=== PATIENT | male | born 1965 | race African-American/Black ===

== ENCOUNTER 2024-10-17 10:42 | Outpatient (CLI) | payer OTHER, SELFPAY ==
--- NOTE | ~2024-10-17 | XR_ITS ---
Cervical Spine: AP, lateral, open-mouth views Clinical History: Arthrodesis status Findings: There is anterior fusion from C5 to C7. There is moderate to advanced degenerative disc duglas rowing at C3-C4 and C4 on C5. There are extensive anterior bridging osteophyte is compatible with DIS H of the upper cervical spine. There is mild facet arthropathy. No instability seen on flexion or ext ension. Pre-vertebral soft tissues are unremarkable. Impression: Anterior fusion from C5 to C7. Moderate degenerative spondylosis and DISH, as above. Reviewed, dictated and finalized at location M. Impression: Anterior fusion from C5 to C7. Moderate degenerative spondylosis and DISH, as above.
--- OUTSIDE RECORDS SUMMARY | 2024-10-17 12:18 | XMS_ITS ---
Author Organization [facility] Address [address] [facility] [address] [facility] [address] [place] [address] Care Team Providers Care Pathology Laboratory Technologist Name Role Phone Sacha Yasmany Unavailable [phone] PROBLEMS Problem Type ICD Code Onset Dates Problem Status W/U Status Risk SNOMED Code Notes Problem Chronic kidney disease, stage 2 (mild) (N18.2) Active confirmed Chronic kidne y disease stage 2 (584989589) Problem Essential (primary) hypertension (I10) Active confirmed Essential hypertension (13201103) Problem Other proteinuria (R80.8) Active confirmed Proteinuria (30277842) Problem Obesity, unspecified (E66.9) Active confirmed Obesity (175396617) Problem Hyperlipidemia, unspecified (E78.5) Active confirmed Hyperlipidemia (99488022) Problem Renal osteodystrophy (N25.0) Active confirmed Renal osteodystrophy (87817164) Encounters Encounter Location Date Provider Diagnosis [facility] [address] [facility] [address] [place] [address] 07/29/2023 Yasmany Goncalves Chronic kidney disea se, stage 2 (mild) N18.2 ; Essential (primary) hypertension I10 ; Other proteinuria R80.8 ; Obesity, unspecified E66.9 ; Hyperlipidemia, unspecified E78.5 and Renal osteodystrophy N25.0 ASSESSMENTS Encounter Date Diagnosis Assessment Notes Treatment Notes Treatment Clinical Notes Section Notes 07/29/2023 Chronic kidney disease, stage 2 (mild) (ICD-10 - N18.2) 07/29/2023 Essential (primary) hypertension (ICD-10 - I10) 07/29/2023 Other proteinuria (ICD-10 - R80.8) 07/29/2023 Obesity, unspecified (ICD-10 - E66.9) 07/29/2023 Hyperlipidemia, unspecified (ICD-10 - E78.5) 07/29/2023 Renal osteodystrophy (ICD-10 - N25.0) PLAN OF TREATMENT No Information Progress Notes * Joan CUNNINGHAMhDOB: 6 (58 yo M)Acc No.[id number]:07/29/2023 Progress Notes Patient: Abraham CUNNINGHAM Provider: MD WANDER, Annie.P, F.A.S.N. :1965 Age:57 Y Sex:Male Date:07/29/2023 [facility] [place] [id number] Subjective: * Chief Complaints: * * Medical History: Objective: Assessment: * Assessment: 1. Chronic kidney disease, stage 2 (mild) - N18.2 2. Essential (primary) hypertension - I10 3. Other proteinuria - R80.8 4. Obesity, unspecified - E66.9 5. Hyperlipidemia, unspecified - E78.5 6. Renal osteodystrophy - N25.0 Plan: * Treatment: * Billing Information: * Visit Code: 96876 Office Visit, New Pt., Level 5. * Procedure Codes: * Sign off status: Pending * Provider: MD WANDER, Aniceto.Abi.Sandrine.P, F.A.S.N. Date: 07/29/2023
--- OUTSIDE RECORDS SUMMARY | 2024-10-17 12:18 | XMS_ITS | Referral Summary ---
Author Organization [facility] Address [address] [place] [address] Care Team Providers Care Color Buffer Name Role Phone Unavailable Primary Care Provider Unavailabl e Social History Tobacco Use Types Packs/Day Years Used Date Smoking Tobacco: Never Assessed Sex and Gender Information Value Date Recorded Sex Assigned at Not on file Legal Sex Male 6:51 PM CDT Gender Identity Not on file Sexual Orientation Not on file Plan of Treatment Not on file
--- OUTSIDE RECORDS SUMMARY | 2024-10-17 12:18 | XMS_ITS | CONTINUITY OF CARE DOCUMENT ---
Author Name miriamkyleighjeferson Address Unknown Organization [facility] Address [address] [facility] [address] [place] [address] Phone [phone] Care Team Providers Care In Tube Conversion Technician Name Role Phone Luis Luther MD Unavailable [phone] Luis Luther MD Unavailable [phone] PROBLEMS Condition Status Date Provider Notes Cardiology examination active Luis Rios Hypertension active Luis Luther MD Palpitations active Luis Luther MD Obesity active Luis Luther MD Family history of CAD active Luis Luther MD ENCOUNTERS Date Type Provider Location Encounter Diag nosis 01/27 - 01/27 In-person encounter Office Visit Luis Luther MD [facility] Cardiology examinationHypertensionPalpitationsObesityFamily history of CAD VITAL SIGNS Date Observation Value Provider weight E&M 278 [lb_av] Lisa franklin height E&M 72 [in_i] Lisa franklin Body Mass Index (Ratio) 38.02 kg/m2 Nancy Harris blood pressure, diastolic 68 mm[Hg] Jovana Herrmann blood pressure, systolic 136 mm[Hg] Ivan Herrmann oxygen saturation, oximetry 93 % Joanne Herrmann respiratory rate E&M 16 /min Charleen Herrmann height E&M 70 [in_i] Joanne rios pulse rate 89 /min Joanne rios weight E&M 265 [lb_av] Joanne rios HISTORY OF MEDICATION USE Medication Status Instructions Dates Provider Indications Com ments amlodipine 10 mg tablet active Joanne Herrmann lisinopril-hydrochlor othiazide 20-25 mg tablet active Joanne Herrmann SOCIAL HISTORY Date Observation Value Provider social history E&M S moking History: Nehemias nielsen has never smoked. Luis Luther MD social history reviewed E&M revi ewed - no changes required Luis Luther MD smoking status Never smoker Joanne Mcdaniel and INSURANCE PROVIDERS Payer name Policy type / Coverage type Betzy red green party ID [employer]ICA[employer] (2) Medicaid [id number] ADVANCE DIRECTIVES Name Date DISCUSSED - NO DECISION MADE TREATMENT PLAN Date Name Performer [id number],C,P t with hx of HTN complaining of intermittent palpitations for 1-2 months. Pt denies SOB and chest pain. Pt states he has family hx of CAD. Will obtain echo, stress test myoview, and telemonitor. Ariana Harris [id number],C,W eight loss advised Ariana Harris [id number],C,P t with hx of HTN complaining of intermittent palpitations for 1-2 months. Pt denies SOB and chest pain. Pt states he has family hx of CAD. Will obtain echo, stress test myoview, and telemonitor. Ariana Harris [id number],C,P t with hx of HTN complaining of intermittent palpitations for 1-2 months. Pt denies SOB and chest pain. Pt states he has family hx of CAD. Will obtain echo, stress test myoview, and telemonitor. His updated medication list for this problem includes: Amlodipine 10 Mg Tablet (Amlodipine) Lisinopril-hydrochlorothiazide 20-25 Mg Tablet (Lisinopril-hydrochlorothiazide) Ariana Harris [id number],C, B P today: 136/68 His updated medication list for this problem includes: Amlodipine 10 Mg Tablet (Amlodipine) Lisinopril-hydrochlorothiazide 20-25 Mg Tablet (Lisinopril-hydrochlorothiazide) Luis Luther MD Cardiology:Pt with h x of HTN complaining of intermittent palpitations for 1-2 months. Pt denies SOB and chest pain. Pt states he has family hx of CAD. Will obtain echo, stress test myoview, and telemonitor. Ariana Harris Cardiology:Weight lo ss advised Ariana Steven Cardiology:Pt with h x of HTN complaining of intermittent palpitations for 1-2 months. Pt denies SOB and chest pain. Pt states he has family hx of CAD. Will obtain echo, stress test myoview, and telemonitor. Ariana Steven Cardiology:Pt with h x of HTN complaining of intermittent palpitations for 1-2 months. Pt denies SOB and chest pain. Pt states he has family hx of CAD. Will obtain echo, stress test myoview, and telemonitor. His updated medication list for this problem includes: Amlodipine 10 Mg Tablet (Amlodipine) Lisinopril-hydrochlorothiazide 20-25 Mg Tablet (Lisinopril-hydrochlorothiazide) Ariana Harris Cardiology: B P today: 136/68 His updated medication list for this problem includes: Amlodipine 10 Mg Tablet (Amlodipine) Lisinopril-hydrochlorothiazide 20-25 Mg Tablet (Lisinopril-hydrochlorothiazide) Luis Luther MD Date Name Monitor - Telemetry (Mobile Cardiac) Holter Monitor 24 Hr Stress Exercise Card iolite Complete Echo HISTORY OF PROCEDURES Procedure Date Procedure Name Provider Procedure Notes S tatus EKG Luis Luther MD completed
--- OUTSIDE RECORDS SUMMARY | 2024-10-17 12:18 | XMS_ITS | Clinical Summary ---
Author Organization [facility] Address [address] [place] [address] Care Team Providers Care Bilingual Teacher Aide Name Role Phone Mk Ibarra DO Primary Care Provider [phone] Lobo Elder Unavailable [phone] Source Comments [facility] is the largest [facility] system based in [place]. We offer more than 150 locations around the mission hospital, in communities large and small, so health care access is convenient. With 19 [facility] hospitals, over 25 long-term care and jail facilities, dozens of physician offices and health centers, home care, hospice, behavioral health services and more. Currently six of our Hospitals are live on the Trending Taste system, they are: [facility] Allergies No known active allergies Medications No known medications Active Problems Problem Noted Date Diagnosed Date Colon cancer screening 02/06/2016 Social History Tobacco Use Types Packs/Day Years Used Date Smoking Tobacco: Never Alcohol Use Standard Drinks/Week Comments Yes 0 (1 standard drink = 0.6 oz pur e alcohol) socially on weekends Sex and Gender Information Value Date Recorded Sex Assigned at Not on file Gender Identity Not on file Sexual Orientation Not on file Last Filed Vital Signs Vital Sign Reading Time Taken Comments Blood Pressure 108/72 02/06/2016 2:35 PM CDT Pulse - - Temperature - - Respiratory Rate - - Oxygen Saturation - - Inhaled Oxygen Concentration - - Weight 122.5 kg (270 lb) 02/06/2016 2:35 PM CDT Height 188 cm (6' 2 ) 02/06/2016 2:35 PM CDT Body Mass Index 34.67 02/06/2016 2:35 PM CDT Plan of Treatment Health Maintenance Due Date Last Done Comments COLON CANCER SCREENING SIGMOIDOSCOPY 1965 COMPUTED TOMOGRAPHY (CT) COLONOGRAPHY 1965 DEPRESSION SCREENING 1 YEAR 1977 HIV SCREENING 1980 DTAP,TDAP AND TD VACCINES (1 - Tdap) 11/08/1983 Lipid Panel 1985 COLON CANCER SCREENING COLONOSCOPY 2010 COLON CANCER SCREENING FIT-D NA (COLOGUARD) 2010 COLON CANCER SCREENING FIT/FOBT 2010 Colorectal Cancer Screening 2010 HERPES ZOSTER RECOMBINANT (SHINGRIX) VACCINATION (1 of 2) 11/08/2015 Influenza Vaccine (#1) 2024 RSV Vaccine Patients 60 Year s and Older (1 - 1-dose 75+ series) 2040 Pneumococcal Vaccine: Peds ( 0-5 Yrs) and At-Risk (6-64 Yrs) Aged Out No longer el igible based on patient's age to complete this topic RSV Vaccine Pediatric Patien ts under 20 months Aged Out No longer eligible b ased on patient's age to complete this topic Care Teams Bilingual Teacher Aide Relationship Specialty Start Date End Date Mk Ibarra DO [address] [place], [place] [id number] PCP - General Family Medicine 02/07/16 Lobo Elder PA [address] [place] [id number] Physician Flight Attendant Physician Flight Attendant 02/20/16
--- OUTSIDE RECORDS SUMMARY | 2024-10-17 12:18 | XMS_ITS | Clinical Summary ---
Author Organization [facility] Address [address] [place] [address] Care Team Providers Care State Epidemiologist Name Role Phone Pcp, No Primary Care Provider [phone] Allergies No known active allergies Medications lisinopril-hydro chlorothiazide (PRINZIDE,ZESTOR ETIC) 20-25 mg per tablet Take 1 tablet by mouth daily. Active amLODIPine (NORVASC) 10 MG tablet Take 10 mg by mouth daily. Active SIMVASTATIN ORAL Take 1 tablet by mouth daily. Active Active Problems No known active problems Social History Tobacco Use Types Packs/Day Years Used Date Smoking Tobacco: Former Cigarettes Q uit: 03/07/1999 Alcohol Use Standard Drinks/Week Comments Yes 5 (1 standard drink = 0.6 oz pur e alcohol) Sex and Gender Information Value Date Recorded Sex Assigned at Not on file Legal Sex Male 4:01 AM MEDICAL POLICY SPECIALIST Gender Identity Not on file Sexual Orientation Not on file Last Filed Vital Signs Vital Sign Reading Time Taken Comments Blood Pressure 125/99 03/07/2016 9:10 AM CDT Pulse 53 03/07/2016 9:15 AM CDT Temperature 36.2 C (97.2 F) 03/07/2016 8:45 AM CDT Respiratory Rate 10 03/07/2016 9:15 AM CDT Oxygen Saturation 98% 03/07/2016 9:15 AM CDT Inhaled Oxygen Concentration - - Weight 124 kg (273 lb 9.5 oz) 03/07/2016 7:36 AM CDT Height 182.9 cm (6' 0.01 ) 03/07/2016 7:36 AM CD T Body Mass Index 37.1 03/07/2016 7:36 AM CDT Plan of Treatment Health Maintenance Due Date Last Done Comments Annual Wellness Exam with PC P (Rolling Yr) 1965 CT Colonography 1965 FIT / gFOBT Colorectal Cance r Screening 1965 FIT-DNA (Cologuard) 1965 Flexible Sigmoidoscopy 1965 Hepatitis C Screening 11/08/1983 DTaP,Tdap,and Td Vaccines (1 - Tdap) 1984 Hepatitis B Vaccines (1 of 3 - 19+ 3-dose series) 1984 Pneumococcal Vaccine: 50+ Ye ars (1 of 1 - PCV) 11/08/2015 Zoster Vaccine (Shingles) (1 of 2) 11/08/2015 COVID-19 Vaccine ( - 2023-2 5 season) 2024 Influenza Vaccine (Season Ended) 2025 Colonoscopy 03/07/2026 03/07/2016 Colorectal Cancer Screening 03/07/2026 Hepatitis A Vaccines Aged Out No long er eligible based on patient's age to complete this topic Meningococcal Vaccine Aged Out No ji brett eligible based on patient's age to complete this topic Procedures Procedure Name Priority Date/Time Associated Diagnosis Comments COLONOSCOPY 03/07/2016 9:14 AM CDT from Last 3 Months or Most Recently Relevant to Health Maintenance Results * COLONOSCOPY (03/07/2016 9:14 AM CDT) Narrative 03/07/2016 9:14 AM CDT Ordered by an unspecified provider. us Ip [facility] Interface GI PROCEDURE ORDERABLES Final R esult from Last 3 Months or Most Recently Relevant to Health Maintenance Care Teams State Epidemiologist Relationship Specialty Start Date End Date Pcp, No [address] [place] [address] PCP - General 03/04/16
--- OUTSIDE RECORDS SUMMARY | 2024-10-17 12:19 | XMS_ITS | Clinical Summary ---
Author Organization [facility] Address [address] [place] [address] Care Team Providers Care Verification Lead Name Role Phone Pcp, Unknown Unavailable Unavailable Source Comments In the event that this is information that is protected by federal Confidentiality of Substance UseDisorder Patient Records, 42 CFR Part 2 prohibits the unauthorized disclosure of these records.[facility] Allergies No known active allergies Medications SIMVASTATIN ORAL Take by mouth. Active LISINOPRIL ORAL Take by mouth. Active amlodipine besylate (AMLODIPINE ORAL) Take by mouth. Active acetaminophen (TYLENOL 8 HOUR ORAL) Take by mouth. Active Active Problems Problem Noted Date Diagnosed Date Dysphagia 02/09/2013 Social History Tobacco Use Types Packs/Day Years Used Date Smoking Tobacco: Former Smokeless Tobacco: Never Alcohol Use Standard Drinks/Week Comments Yes 0 (1 standard drink = 0.6 oz pur e alcohol) socially [employer] Answer Date Recorded Please choose the link for ' [employer]'above to launch [employer], a personalized community referral platform for a patient's SDOH needs. - 12/08/2020 Sex and Gender Information Value Date Recorded Sex Assigned at Not on file Legal Sex Male 2:42 AM CDT Gender Identity Not on file Sexual Orientation Not on file Last Filed Vital Signs Vital Sign Reading Time Taken Comments Blood Pressure 117/69 07/15/2019 9:55 AM PHONOGRAPH MECHANIC Pulse 67 07/15/2019 9:55 AM PHONOGRAPH MECHANIC Temperature 36.3 C (97.3 F) 07/15/2019 9:55 AM PHONOGRAPH MECHANIC Respiratory Rate 18 07/15/2019 9:55 AM PHONOGRAPH MECHANIC Oxygen Saturation - - Inhaled Oxygen Concentration - - Weight 130.6 kg (288 lb) 07/15/2019 9:55 AM PHONOGRAPH MECHANIC Height 182.9 cm (6') 07/15/2019 9:55 AM PHONOGRAPH MECHANIC Body Mass Index 39.06 07/15/2019 9:55 AM PHONOGRAPH MECHANIC Plan of Treatment Health Maintenance Due Date Last Done Comments 1 YR COLONOSCOPY 1965 10 YR COLONOSCOPY 1965 2 YR COLONOSCOPY 1965 3 MONTHS COLONOSCOPY 1965 3 YR COLONOSCOPY 1965 4 YR COLONOSCOPY 1965 5 YEAR SIGMOIDOSCOPY 1965 5 YR COLONOSCOPY 1965 6 MONTHS COLONOSCOPY 1965 6 YR COLONOSCOPY 1965 7 YR COLONOSCOPY 1965 8 YR COLONOSCOPY 1965 9 YR COLONOSCOPY 1965 ANNUAL FOBT [address] Colonography 1965 Colorectal Cancer Screening 1965 HIV SCREENING 1980 HEPATITIS C SCREENING 11/08/1983 LIPID TESTING 11/08/1983 DTAP/TDAP/TD (1 - Tdap) 1984 Diabetes Screening 2000 ADDRESS PSA 2005 Pneumococcal 50+ (1 of 1 - PCV) 11/08/2015 ZOSTER (1 of 2) 11/08/2015 COVID-19 VACCINE ( - 2023-2 5 season) 2024 INFLUENZA (Season Ended) 2025 MENINGOCOCCAL B (MENB) Aged Out No lo nger eligible based on patient's age to complete this topic Insurance X-C/B[employer]EF[employer] HMO [facility] GENERIC X-C POS Care Teams Verification Lead Relationship Specialty Start Date End Date Pcp, Unknown 03/16/13
--- OUTSIDE RECORDS SUMMARY | 2024-10-17 12:19 | XMS_ITS | Encounter Summary ---
Author Organization [facility] Address [address] [place] [address] Care Team Providers Care Registered Medical Transcriptionist Name Role Phone Pcp, Unknown Primary Care Provider Unavailabl e Pcp, Unknown Unavailable Unavailable Source Comments In the event that this is information that is protected by [facility] Confidentiality of Substance User Disorder Patient Records, 42 CFR Part 2 prohibits the unauthorized disclosure of these records.[facility] Reason for Referral * PT/OT/ST (Routine) - Closed Specialty Diagnoses / Procedures Referred By Contac t Referred To Contact Physical Therapy Diagnoses Sprain and strain of unspecified site of knee and leg Ronald Murphy, DO [address] [facility] [address] [place] [address] Phone: tel: fax: Referral ID Status Reason Start Date Expiration Date Visits Re quested Visits Authorized [id number] Closed 03/23/2013 05/18/2013 13 13 Scheduling Instructions Please contact the [facility] location of your choice to schedule an appointment for therapy. [facility] [place], [address], Higinio @ [address], Hig[place]io @ [facility] [address] [place] [address], Rusty Salazar @ [facility] [address] [place] [address], Megan @ [facility] & [address], Staci @ [facility] [address] [place] [address], [address], [facility] [address] [facility], [address] [place] @ Critical access hospital Medical Office Building [address] [facility], [address], [facility] [address] , Jamaal @ [facility] Medical Office Building [address] [facility], [address], Darion @ [address], Outpatient Bldg, 5th floor [phone] Encounter Details Date Type Department Care Team (Late st Contact Info) Description 03/23/2013 Orders Only [place] Physical Therapy [address] [facility] [address] [place] [address] Ronald Murphy DO [address] [facility] [address] [place] [address] Social History Tobacco Use Types Packs/Day Years Used Date Smoking Tobacco: Never Assessed Sex and Gender Information Value Date Recorded Sex Assigned at Not on file Legal Sex Male 2:42 AM CDT Gender Identity Not on file Sexual Orientation Not on file documented as of this encounter Plan of Treatment Not on file documented as of this encounter Visit Diagnoses Diagnosis Sprain and strain of unspecified site of knee and leg- Primary documented in this encounter Care Teams Registered Medical Transcriptionist Relationship Specialty Start Date End Date Pcp, Unknown PCP - General 03/16/13 03/16/18 Pcp, Unknown 03/16/13 documented as of this encounter
--- OUTSIDE RECORDS SUMMARY | 2024-10-17 12:19 | XMS_ITS | Clinical Summary ---
Author Organization [facility] Address [address] [place] [address] Care Team Providers Care Education Manager Name Role Phone Unavailable Primary Care Provider Unavailabl e Source Comments You are receiving this document as you are listed as the PCP, follow-upprovider, or the patient hasbeen referred to you for consultation. This is incompliance with [facility] Transitions of Care Requirement. Note: Specific treatmentrecords and notes about services for mental health, developmental disabilities,alcoholism, drug dependence, or substance abuse, you will need to contact theMedical Records Department at [phone] and complete a separate Release ofAuthorization form. They are also available to answer other questions.[facility] Social History Tobacco Use Types Packs/Day Years Used Date Smoking Tobacco: Never Assessed Sex and Gender Information Value Date Recorded Sex Assigned at Not on file Gender Identity Not on file Sexual Orientation Not on file Plan of Treatment Health Maintenance Due Date Last Done Comments ANNUAL DEPRESSION SCREENING,ADULT 1965 ANNUAL BMI COUNSELING 11/08/1967 HIV SCREEN 1980 ADULT VACCINE: TETANUS( TD) BOOSTER,EVERY 10 YR 1984 CHOL SCREENING: EVERY 5 YEARS 1985 CA SCREENING: COLONOSCOPY,EV EFRAIN 10 YEARS,ROUTINE 09/08/2015 ADULT VACCINE: SHINGRIX (1 of 2) 11/08/2015 Covid-19 Vaccine (2023-2 5 season) 2024 INFLUENZA VACCINE (#1) 2024 PEDS RSV < 20 MON Aged Out No longer eligible based on patient's age to complete this topic PNEUMOCOCCAL VACCINE Aged Out No long er eligible based on patient's age to complete this topic
--- OUTSIDE RECORDS SUMMARY | 2024-10-17 12:19 | XMS_ITS ---
Author Organization [facility] Address [address] [place] [address] Care Team Providers Care First Assist Name Role Phone Yasmany Goncalves Unavailable [phone] Encounters Encounter Location Date Provider Diagnosis [place] [address] [facility] [address] [place] [address] 08/14/2023 Yasmany Goncalves Chronic kidney disea se, stage 2 (mild) N18.2 ; Essential (primary) hypertension I10 ; Other proteinuria R80.8 ; Obesity, unspecified E66.9 ; Hyperlipidemia, unspecified E78.5 and Renal osteodystrophy N25.0 ASSESSMENTS Encounter Date Diagnosis Assessment Notes Treatment Notes Treatment Clinical Notes Section Notes 08/14/2023 Chronic kidney disease, stage 2 (mild) (ICD-10 - N18.2) 08/14/2023 Essential (primary) hypertension (ICD-10 - I10) 08/14/2023 Other proteinuria (ICD-10 - R80.8) 08/14/2023 Obesity, unspecified (ICD-10 - E66.9) 08/14/2023 Hyperlipidemia, unspecified (ICD-10 - E78.5) 08/14/2023 Renal osteodystrophy (ICD-10 - N25.0) PLAN OF TREATMENT No Information Progress Notes * Joan FERNANDEZhDOB: 6 (58 yo M)Acc No.[id number]:08/14/2023 Progress Notes Patient: Abraham FERNANDEZ Provider: MD WANDER, F.A.C.P, F.A.S.N. :1965 Age:57 Y Sex:Male Date:08/14/2023 Address:[id number] Subjective: * Chief Complaints: * * Medical History: Objective: Assessment: * Assessment: 1. Chronic kidney disease, stage 2 (mild) - N18.2 2. Essential (primary) hypertension - I10 3. Other proteinuria - R80.8 4. Obesity, unspecified - E66.9 5. Hyperlipidemia, unspecified - E78.5 6. Renal osteodystrophy - N25.0 Plan: * Treatment: * Billing Information: * Visit Code: [id number] Office Visit, Est Pt., Level 4. * Procedure Codes: * Sign off status: Pending * Provider: MD WANDER, F.A.C.P, F.A.S.N. Date: 08/14/2023
--- OUTSIDE RECORDS SUMMARY | 2024-10-17 12:19 | XMS_ITS | Patient Health Record ---
Author Organization [facility] Address [address] [place] [address] REASON FOR REFERRAL No Information PROBLEMS Problem Type ICD Code Onset Dates Problem Status W/U Status Risk SNOMED Code Notes Problem Obesity, unspecified (E66.9) Active confirmed Obesity (343002923) Problem Hyperlipidemia, unspecified (E78.5) Active confirmed Hyperlipidemia (32612405) Problem Essential (primary) hypertension (I10) Active confirmed Essential hypertension (93232321) Problem Chronic kidney disease, stage 2 (mild) (N18.2) Active confirmed Chronic kidne y disease stage 2 (840340663) Problem Renal osteodystrophy (N25.0) Active confirmed Renal osteodystrophy (71271332) Problem Other proteinuria (R80.8) Active confirmed Proteinuria (52413016) PLAN OF TREATMENT No Information
--- OUTSIDE RECORDS SUMMARY | 2024-10-17 12:19 | XMS_ITS | Clinical Summary ---
Author Organization [facility] Address [address] [place] [id number] Care Team Providers Care Industrial Robotics Mechanic Name Role Phone Unavailable Primary Care Provider Unavailabl e Social History Tobacco Use Types Packs/Day Years Used Date Smoking Tobacco: Never Assessed Sex and Gender Information Value Date Recorded Sex Assigned at Not on file Gender Identity Not on file Sexual Orientation Not on file Plan of Treatment Health Maintenance Due Date Last Done Comments Annual Physical 1965 Colonography 1965 Colonoscopy 1965 Colorectal Cancer Screening 1965 DNA-FIT (Cologuard) 1965 FIT/FOBT Colorectal Screening 1965 Flexible Sigmoidoscopy 1965 Annual Depression Screen 1977 PSA 11/08/2015 Pneumococcal Vaccine: 50+ Years (1 of 1 - PCV) 016 Zoster Vaccines (1 of 2) 11/08/2015 COVID-19 Vaccine (1 - 2023- season) 2024 Influenza Vaccine (#1) 2024
--- OUTSIDE RECORDS SUMMARY | 2024-10-17 12:19 | XMS_ITS | Encounter Summary ---
Author Organization [facility] Address [address] [place] [address] Care Team Providers Care Building Construction Supervisor Name Role Phone Pcp, Unknown Primary Care Provider Unavailabl e Pcp, Unknown Unavailable Unavailable Source Comments In the event that this is information that is protected by [facility] Confidentiality of Substance User Disorder Patient Records, 42 CFR Part 2 prohibits the unauthorized disclosure of these records.[facility] Encounter Details Date Type Department Care Team (Late st Contact Info) Description 03/16/2013 Orders Only [facility] [place] [address] Stefano Cole, [address] [place] [address] Social History Tobacco Use Types Packs/Day Years Used Date Smoking Tobacco: Never Assessed Sex and Gender Information Value Date Recorded Sex Assigned at Not on file Legal Sex Male 2:42 AM CDT Gender Identity Not on file Sexual Orientation Not on file documented as of this encounter Plan of Treatment Not on file documented as of this encounter Results * XR Knee Routine RIGHT (03/16/2013 12:00 PM CDT) Anatomical Region Laterality Modality Knee Right Computed Radiogr aphy Narrative 03/16/2013 12:20 PM CDT Formerly [facility] Department of Diagnostic Imaging NAME: CLARICE CUNNINGHAMNETH PT TYPE: O ORD PHYS: STEFANO COLE PHONE: ATT PHYS: STEFANO COLE MR#: [id number] REF PHYS: STEFANO COLE CSN/ACCT: [id number] ORD DATE: 03/16/2013 12:01:00 ROOM:[facility] [[email or web address]] RADORD: [id number] DISCHARGED: : 1965 AGE:47Y SEX: M IMAGING PROCEDURE: XR KNEE 4 VIEWS RIGHT DATE: Mar 16, 2013 12:01:08 PM EXAM: Four views, right knee HISTORY: Twisting injury, right knee pain COMPARISON: None at [facility] FINDINGS: AP, lateral, tunnel, and tangential patellar views of the right knee demonstrate no acute fracture, dislocation, or destructive bony lesion. A moderate suprapatellar joint effusion is present. The medial compartment joint space is very minimally narrowed. Lateral and patellofemoral compartments are preserved. Small enthesophyte is noted at the superior pole of the patella. IMPRESSION: 1. Moderate joint effusion without acute bony abnormalities. If symptoms persist, consider followup MRI to evaluate for internal derangement. 2. Very mild medial compartment joint space narrowing. 3. Superior patellar enthesophyte. Correlate clinically for evidence of chronic quadriceps tendinosis. Dictated by: JESUS STOLL MD ORDER#:[id number] : 1965 2521/ DD/ DT/TT: 03/16/2013 12:19:57 DOCID: [id number] JOB: 0 cc: cc: STEFANO COLE DO, Attending This document has been reviewed and approved electronically by JESUS STOLL MD on 03/16/2013 12:20:01. Procedure Note Jesus Stoll MD - 03/16/2013 Formerly [facility] Department of Diagnostic Imaging NAME: JIM ABRAHAM PT TYPE: O ORD PHYS: STEFANO COLE PHONE: ATT PHYS: STEFANO COLE MR#: [id number] REF PHYS: STEFANO COLE CSN/ACCT: [id number] ORD DATE: 03/16/2013 12:01:00 ROOM:[address] [place], [place] [address]ORD: [id number] DISCHARGED: : 1965 AGE:47Y SEX: M IMAGING PROCEDURE: XR KNEE 4 VIEWS RIGHT DATE: Mar 16, 2013 12:01:08 PM EXAM: Four views, right knee HISTORY: Twisting injury, right knee pain COMPARISON: None at [facility] FINDINGS: AP, lateral, tunnel, and tangential patellar views of the right knee demonstrate no acute fracture, dislocation, or destructive bony lesion. A moderate suprapatellar joint effusion is present. The medial compartment joint space is very minimally narrowed. Lateral and patellofemoral compartments are preserved. Small enthesophyte is noted at the superior pole of the patella. IMPRESSION: 1. Moderate joint effusion without acute bony abnormalities. If symptoms persist, consider followup MRI to evaluate for internal derangement. 2. Very mild medial compartment joint space narrowing. 3. Superior patellar enthesophyte. Correlate clinically for evidence of chronic quadriceps tendinosis. Dictated by: JESUS STOLL MD ORDER#:[id number] : 1965 2521/ DD/ DT/TT: 03/16/2013 12:19:57 DOCID: [id number] JOB: 0 cc: cc: STEFANO COLE DO, Attending This document has been reviewed and approved electronically by JESUS STOLL MD on 03/16/2013 12:20:01. Stefano Cole DO IMG DIAGNOSTIC IMAGING ORDERABLE S Final Result documented in this encounter Visit Diagnoses Diagnosis Right knee pain Pain in joint, lower leg Right knee pain- Primary Pain in joint, lower leg documented in this encounter Care Teams Building Construction Supervisor Relationship Specialty Start Date End Date Pcp, Unknown PCP - General 03/16/13 03/16/18 Pcp, Unknown 03/16/13 documented as of this encounter
--- OUTSIDE RECORDS SUMMARY | 2024-10-17 12:19 | XMS_ITS | Referral Summary ---
Author Organization [facility] Address [address] [place] [address] Care Team Providers Care Construction Project Assistant Name Role Phone Unavailable Primary Care Provider Unavailabl e Source Comments You are receiving this document as you are listed as the PCP, follow-upprovider, or the patient hasbeen referred to you for consultation. This is incompliance with [facility] Transitions of Care Requirement. Note: Specific treatmentrecords and notes about services for mental health, developmental disabilities,alcoholism, drug dependence, or substance abuse, you will need to contact theMedical Records Department at [phone] and complete a separate Release ofAuthorization form. They are also available to answer other questions.[facility] Social History Tobacco Use Types Packs/Day Years Used Date Smoking Tobacco: Never Assessed Sex and Gender Information Value Date Recorded Sex Assigned at Not on file Gender Identity Not on file Sexual Orientation Not on file Plan of Treatment Not on file
--- OUTSIDE RECORDS SUMMARY | 2024-10-17 12:19 | XMS_ITS | Clinical Summary ---
Author Organization [facility] Address [address] [place] [address] Phone Care Team Providers Care Fine Craft Artist Name Role Phone Unavailable Primary Care Provider Unavailabl e Allergies No known active allergies Medications simvastatin (ZOCOR) 10 mg tablet Take 10 mg by mouth daily with supper. UNKNOWN DOSE Active lisinopriL (PRINIVIL) 10 mg tablet Take 10 mg by mouth daily. UNKNOWN DOSE Active Social History Tobacco Use Types Packs/Day Years Used Date Smoking Tobacco: Never Alcohol Use Standard Drinks/Week Comments Yes 0 (1 standard drink = 0.6 oz pur e alcohol) Sex and Gender Information Value Date Recorded Sex Assigned at Not on file Legal Sex Male 5:28 AM EXHAUST EMISSIONS INSPECTOR Gender Identity Not on file Sexual Orientation Not on file Last Filed Vital Signs Vital Sign Reading Time Taken Comments Blood Pressure 135/79 08/29/2020 6:38 AM EXHAUST EMISSIONS INSPECTOR Pulse 56 08/29/2020 6:38 AM EXHAUST EMISSIONS INSPECTOR Temperature 36.3 C (97.4 F) 08/29/2020 5:31 AM EXHAUST EMISSIONS INSPECTOR Respiratory Rate 16 08/29/2020 6:38 AM EXHAUST EMISSIONS INSPECTOR Oxygen Saturation 99% 08/29/2020 6:38 AM EXHAUST EMISSIONS INSPECTOR Inhaled Oxygen Concentration - - Weight 124.7 kg (275 lb) 08/29/2020 5:31 AM EXHAUST EMISSIONS INSPECTOR Height 182.9 cm (6') 08/29/2020 5:31 AM EXHAUST EMISSIONS INSPECTOR Body Mass Index 37.3 08/29/2020 5:31 AM EXHAUST EMISSIONS INSPECTOR Plan of Treatment Health Maintenance Due Date Last Done Comments DTAP/TDAP/TD VACCINES (1 - Tdap) 1984 HEPATITIS B VACCINES (1 of 3 - 19+ 3-dose series) 10/27 COLORECTAL SCREENING 2010 Colorectal Cancer Screening 2010 FIT-DNA Q 3 years 2010 FIT/FOBT Q 1 year 2010 Flex Sig/CT Colonography Q 5 years 2010 ZOSTER VACCINE (1 of 2) 11/08/2015 INFLUENZA VACCINE (#1) 2024
--- OUTSIDE RECORDS SUMMARY | 2024-10-17 12:19 | XMS_ITS | Clinical Summary ---
Author Organization [facility] Address [address] [place] [address] Care Team Providers Care Sales Stock Associate Name Role Phone Unavailable Primary Care Provider Unavailabl e Social History Tobacco Use Types Packs/Day Years Used Date Smoking Tobacco: Never Assessed Sex and Gender Information Value Date Recorded Sex Assigned at Not on file Legal Sex Male 6:51 PM CDT Gender Identity Not on file Sexual Orientation Not on file Plan of Treatment Health Maintenance Due Date Last Done Comments Depression Screening 1977 DTaP/Tdap/Td Vaccine (1 - Tdap) 1984 Hepatitis B Vaccine (1 of 3 - 19+ 3-dose series) 1984 CT Colonography 2010 Cologuard 2010 Colonoscopy 2010 Colorectal Cancer Screening 2010 Fecal Occult Blood 2010 Sigmoidoscopy 2010 Pneumococcal Vaccine 50+ (1 of 1 - PCV) 11/08/2015 Shingles Vaccine (1 of 2) 11/08/2015 COVID-19 Vaccine (2023-2 5 season) 2024 Influenza Vaccine (Season Ended) 2025 HPV Vaccine Aged Out No longer eligi ble based on patient's age to complete this topic Hepatitis A Vaccine Aged Out No longe r eligible based on patient's age to complete this topic Meningococcal Serogroup B Vaccine Aged Out No longer eligible based on patient's age to complete this topic Meningococcal Vaccine Aged Out No ji brett eligible based on patient's age to complete this topic
== END 2024-10-17 10:43 | disposition home or self-care (01) ==
PROVIDERS: PCP Internal Medicine; Visit Provider Nurse Practitioner Adult Health
DX: M47.812 Spondylosis without myelopathy or radiculopathy, cervical region (principal); M48.12 Ankylosing hyperostosis [Forestier], cervical region; Z98.1 Arthrodesis status
CPT/HCPCS: 72040

== ENCOUNTER 2025-06-06 09:17 | Outpatient (CLI) | payer OTHER, SELFPAY ==
--- NOTE | 2025-06-06 10:20 | NEURO_ITS ---
Impression: # Complains of numbness of left hand. ? # History of neck surgery. ? # Bilateral Ulnar Neuropathy across the elbow, left more than right. ? # Early Carpal Tunnel Syndrome, bilaterally.. ? # Normal Needle/ EMG exam. ? # Considering history of neck surgery, MRI of cervical spine suggested. Nerve Conduction Studies ?Stim Site NR Peak (ms) P-T Amp (?V) Site1 Site2 Delta-P (ms) Dist (cm) Rosendo (m/s) Left Median Anti Sensory (2-3nd Digit) Wrist ? 3.7 19.9 Wrist 2-3nd Digit 3.7 14.0 38 Wrist ? 3.0 10.7 Wrist 2-3nd Digit 3.7 14.0 38 Right Median Anti Sensory (2-3nd Digit) Wrist ? 3.3 14.8 Wrist 2-3nd Digit 3.3 14.0 42 Wrist ? 3.3 12.9 Wrist 2-3nd Digit 3.3 14.0 42 Left Radial Anti Sensory (Base 1st Digit) Wrist ? 1.9 12.1 Wrist Base 1st Digit 1.9 0.0 Right Radial Anti Sensory (Base 1st Digit) Wrist ? 2.8 5.1 Wrist Base 1st Digit 2.8 0.0 Left Ulnar Anti Sensory (5th Digit) Wrist ? 1.2 10.4 Wrist 5th Digit 1.2 14.0 117 Right Ulnar Anti Sensory (5th Digit) Wrist ? 2.7 19.2 Wrist 5th Digit 2.7 14.0 52 ?Stim Site NR Onset (ms) O-P Amp (mV) Site1 Site2 Delta-0 (ms) Dist (cm) Rosendo (m/s) Left Median Motor (Abd Poll Brev) Wrist ? 4.1 4.0 Elbow Wrist 5.7 33.0 58 Elbow ? 9.8 3.6 Right Median Motor (Abd Poll Brev) Wrist ? 4.2 1.5 Elbow Wrist 5.8 31.0 53 Elbow ? 10.0 1.3 Left Ulnar Motor (Abd Dig Minimi) Wrist ? 3.0 7.0 A Elbow Wrist 7.3 34.0 47 A Elbow ? 10.3 7.0 B Elbow Wrist 5.0 24.0 48 B Elbow ? 8.0 7.7 Right Ulnar Motor (Abd Dig Minimi) Wrist ? 3.0 8.2 A Elbow Wrist 7.0 34.0 49 A Elbow ? 10.0 6.6 B Elbow Wrist 5.0 24.0 48 B Elbow ? 8.0 6.8 F Wave Studies ?NR F-Lat (ms) L-R F-Lat (ms) Left Median (Mrkrs) (Abd Poll Brev) ? 32.99 2.62 Right Median (Mrkrs) (Abd Poll Brev) ? 30.37 2.62 Left Ulnar (Mrkrs) (Abd Dig Min) ? 34.72 8.77 Right Ulnar (Mrkrs) (Abd Dig Min) ? 25.95 8.77 Electromyography ?Side Muscle Nerve Root Ins Act Fibs Amp Dur Recrt Comment Right 1stDorInt Ulnar C8-T1 Nml Nml Nml Nml Nml Right Ext Indicis Radial (Post Int) C7-8 Nml Nml Nml Nml Nml Right Ext Digitorum Radial (Post Int) C7-8 Nml Nml Nml Nml Nml Right BrachioRad Radial C5-6 Nml Nml Nml Nml Nml Right PronatorTeres Median C6-7 Nml Nml Nml Nml Nml Right Abd Poll Brev Median C8-T1 Nml Nml Nml Nml Nml Right ABD Dig Min Ulnar C8-T1 Nml Nml Nml Nml Nml Right FlexPolLong Median (Ant Int) C7-8 Nml Nml Nml Nml Nml Right Abd Poll Long Radial (Post Int) C7-8 Nml Nml Nml Nml Nml Left 1stDorInt Ulnar C8-T1 Nml Nml Nml Nml Nml Left Ext Indicis Radial (Post Int) C7-8 Nml Nml Nml Nml Nml Left Ext Digitorum Radial (Post Int) C7-8 Nml Nml Nml Nml Nml Left BrachioRad Radial C5-6 Nml Nml Nml Nml Nml Left PronatorTeres Median C6-7 Nml Nml Nml Nml Nml Left Abd Poll Brev Median C8-T1 Nml Nml Nml Nml Nml Left ABD Dig Min Ulnar C8-T1 Nml Nml Nml Nml Nml Left FlexPolLong Median (Ant Int) C7-8 Nml Nml Nml Nml Nml Left Abd Poll Long Radial (Post Int) C7-8 Nml Nml Nml Nml Nml Right Biceps Musculocut C5-6 Nml Nml Nml Nml Nml
== END 2025-06-06 09:18 | disposition home or self-care (01) ==
LOC: ANHNEURO 09:18
PROVIDERS: PCP Internal Medicine; Visit Provider Nurse Practitioner Adult Health
DX: G56.03 Carpal tunnel syndrome, bilateral upper limbs (principal); G56.23 Lesion of ulnar nerve, bilateral upper limbs; Z98.1 Arthrodesis status
CPT/HCPCS: 95886; 95911